=== PATIENT | male | born 1960 | race Two or more races ===

== ENCOUNTER 2019-06-06 06:55 | Emergency (ER) | payer MEDICARE ==
[~2019-06-06] VITALS: Ht 177.8 cm; Wt 90.7 kg
[2019-06-06 07:01] VITALS: BP 153/108
--- NOTE | 2019-06-06 07:14 | PHYS DOC ---
Past History Past Medical History: Kidney Stones Smoking: Quit Greater Than 1 Year (smoked for about a year) Adult General Chief Complaint Chief Complaint: SHORTNESS OF BREATH HPI HPI patient is a 58-year-old male, who presents to the emergency department for evaluation of 3-4 weeks worth of worsening cough, productive of greenish sputum, along with some low-grade fevers. He states he was unable to get off work, which is why it took so long to come. He does report some discomfort in his chest and back, primarily due to coughing. Laying flat seems to worsen his shortness of breath. He does report having had some nasal congestion. He denies any pedal edema, abdominal pain, leg or calf pain, or weight gain. He has not had any chest pain on exertion. He does have some shortness of breath with exertion. He states he has had similar symptoms in the past and been diagnosed with pneum onia. There are no alleviating or exacerbating factors to his symptoms, except as noted above. Review of Systems Review of Systems Constitutional: Denies fever or chills [] Eyes: Denies change in visual acuity, redness, or eye pain [] HENT: Denies sore throat. Reports left otalgia. [] Respiratory: No additional information not addressed in HPI [] Cardiovascular: The patient denies any palpitations, otherwise as specified in the history of present illness.[] GI: Denies abdominal pain, nausea, vomiting, bloody stools or diarrhea [] : Denies dysuria or hematuria [] Musculoskeletal: Denies back pain or joint pain [] Integument: Denies rash or skin lesions [] Neurologic: Denies headache, focal weakness or sensory changes [] Endocrine: Denies polyuria or polydipsia [] All other systems were reviewed and found to be within normal limits, except as documented in this note. Physical Exam Physical Exam PHYSICAL EXAM: CONSTITUTIONAL: Well developed, well nourished HEAD: normocephalic, atraumatic EENT: PERRL, EOMI. Conjunctivae normal color, sclerae non-icteric; moist mucous membranes. Tympanic membranes are normal bilaterally. NECK: Supple, non-tender; no meningismus. LUNGS: There are extra wheezes in all lung gomez, breathing even and unlabored. Normal air movement. HEART: Regular rate and rhythm, no murmur CHEST: No deformity; non-tender ABDOMEN: The abdomen is soft, and non-tender, no masses or bruits. EXTREM: Normal ROM; no deformity, no calf tenderness. Normal pulses palpable in all extremities. There is no pedal edema. SKIN: No rash; no diaphoresis NEURO: Alert; normal speech and cognition; CN's grossly intact; strength grossly intact without focal deficit. BACK: No CVA TTP. Current Patient Data Lab Results Laboratory Tests Test 06/06/19 07:21 White Blood Count 7.3 x10^3/uL Red Blood Count 4.74 x10^6/uL Hemoglobin 14.9 g/dL Hematocrit 42.9 % Mean Corpuscular Volume 91 fL Mean Corpuscular Hemoglobin 32 pg Mean Corpuscular Hemoglobin Concent 35 g/dL Red Cell Distribution Width 14.4 % Platelet Count 273 x10^3/uL Neutrophils (%) (Auto) 64 % Lymphocytes (%) (Auto) 26 % Monocytes (%) (Auto) 8 % Eosinophils (%) (Auto) 2 % Basophils (%) (Auto) 0 % Neutrophils # (Auto) 4.7 x10^3uL Lymphocytes # (Auto) 1.9 x10^3/uL Monocytes # (Auto) 0.5 x10^3/uL Eosinophils # (Auto) 0.1 x10^3/uL Basophils # (Auto) 0.0 x10^3/uL Sodium Level 142 mmol/L Potassium Level 3.6 mmol/L Chloride Level 108 mmol/L Carbon Dioxide Level 29 mmol/L Anion Gap 5 Blood Urea Nitrogen 13 mg/dL Creatinine 1.2 mg/dL Estimated GFR (Cockcroft-Gault) 62.6 BUN/Creatinine Ratio 11 Glucose Level 111 mg/dL Calcium Level 9.5 mg/dL Total Bilirubin 0.9 mg/dL Aspartate Amino Transf (AST/SGOT) 33 U/L Alanine Aminotransferase (ALT/SGPT) 39 U/L Alkaline Phosphatase 102 U/L Troponin I Quantitative 0.083 ng/mL BS-[id number]-M-[id number] Natriuretic Peptide 1384 pg/mL Total Protein 8.0 g/dL Albumin 3.9 g/dL Albumin/Globulin Ratio 1.0 Current Medications Medications (Trade) Dose Ordered Sig/Daniel Route PRN Reason Start Time Stop Time Status Last Admin Dose Admin Albuterol/ Ipratropium (Duoneb) 3 ml 1X ONCE NEB 06/06/19 07:40 06/06/19 07:41 DC 06/06/19 07:27 EKG EKG []Normal sinus rhythm at a rate of 72 beats for minute, leftward axis, normal intervals, there are no acute ischemic ST/T changes. Radiology/Procedures Radiology/Procedures [PROCEDURE: CHEST PA & LATERAL CHEST PA LATERAL CLINICAL INDICATION: Cough, shortness of breath. COMPARISON: None FINDINGS: Heart is normal in size. Lungs are clear. No pneumothorax or pleural effusion. Visualized bony thorax within normal limits. IMPRESSION: No acute pulmonary process. ] Course & Med Decision Making Course & Med Decision Making Pertinent Labs and Imaging studies reviewed. (See chart for details) []8:10 AM: The patient's condition remained stable. He is feeling somewhat bet ter, his wheezing is improved. He remained without respiratory distress. I discussed his abnormal labs, and recommended overnight cardiac evaluation. The patient declined, I discussed the risks of undiagnosed or untreated acute coronary syndrome including sudden and permanent debility, the patient voiced understanding. He does admit to using methamphetamine about 2 days ago, "to try and help his breathing". He states he does not usually abuse amphetamines. I discussed the suboptimal nature of the patient's treatment plan, with the importance of close outpatient follow-up given that he is not allowing inpatient cardiac evaluation. Return precautions were discussed in detail. Dragon Disclaimer Dragon Disclaimer This electronic medical record was generated, in whole or in part, using a voice recognition dictation system. Departure Departure: Impression: Primary Impression: Wheezing Additional Impressions: Elevated troponin Dyspnea Disposition: AGAINST MEDICAL ADVICE Condition: STABLE Referrals: REGINE CASTILLO MD Patient Instructions: Acute Bronchitis, Chest Pain (Nonspecific) Additional Instructions: Blood tests related to her heart or abnormal today. It is important that you get close follow-up with cardiology for further evaluation. Please call [phone], later today, to schedule an appointment to get seen as soon as possible. Begin taking 81 mg of aspirin once daily until instructed to stop by a physician.. Scripts Azithromycin (ZITHROMAX) 250 Mg Tablet 1 PKG PO UD for -, #6 TAB Prov: BRIANA EPPS MD 06/06/19 Prednisone (PREDNISONE) 20 Mg Tablet 40 MG PO DAILY for - for 5 Days, #10 TAB Prov: BRIANA EPPS MD 06/06/19 Albuterol Sulfate (PROAIR HFA INHALER) 8.5 Gm Hfa.aer.ad 1 PUFF INH PRN Q6HRS PRN for SHORTNESS OF BREATH, #1 INHALER 0 Refills Prov: BRIANA EPPS MD 06/06/19 Problem Qualifiers BRIANA EPPS MD Jun 06, 2019 07:14
[2019-06-06] MEDS: IPRATRPIUM/ALBUTEROL 0.5/2.5MG 3 ML NEBU. NEB ONE (07:27)
--- NOTE | 2019-06-06 07:51 | RAD ---
CHEST PA LATERAL CLINICAL INDICATION: Cough, shortness of breath. COMPARISON: None FINDINGS: Heart is normal in size. Lungs are clear. No pneumothorax or pleural effusion. Visualized bony thorax within normal limits. IMPRESSION: No acute pulmonary process. Electronically signed by: Mark De La Vega DO (06/06/2019 7:48 AM) [facility]
[2019-06-06 07:53] LABS: BASO % 0 % (0-3); EOS # 0.1 x10^3/uL (0.0-0.7); EOS % 2 % (0-3); HEMATOCRIT 42.9 % (39.0-53.0); HEMOGLOBIN 14.9 g/dL (13.0-17.5); LYMPH # 1.9 x10^3/uL (1.0-4.8); LYMPH % 26 % (24-48); MEAN CORPUSCULAR HEMOGLOBIN 32 pg (25-35); MEAN CORPUSCULAR HGB CONC 35 g/dL (31-37); MEAN CORPUSCULAR VOLUME 91 fL (79-100); MONO # 0.5 x10^3/uL (0.0-1.1); MONO % 8 % (0-9); NEUT # 4.7 x10^3uL (1.8-7.7); NEUT % 64 % (31-73); PLATELET COUNT 273 x10^3/uL (140-400); RED BLOOD COUNT 4.74 x10^6/uL (4.30-5.70); RED CELL DISTRIBUTION WIDTH 14.4 % (11.5-14.5); WHITE BLOOD COUNT 7.3 x10^3/uL (4.0-11.0)
[2019-06-06 07:58] LABS: ALBUMIN 3.9 g/dL (3.4-5.0); CALCIUM 9.5 mg/dL (8.5-10.1); CREATININE 1.2 mg/dL (0.7-1.3); GFR 62.6; POTASSIUM 3.6 mmol/L (3.5-5.1); TOTAL BILIRUBIN 0.9 mg/dL (0.2-1.0)
[2019-06-06] MEDS ORDERED: PRED20TA PO (08:14)
[2019-06-06] MEDS ORDERED: AZIT250T PO (08:14)
[2019-06-06] MEDS ORDERED: ALBU2.5V8 INH (08:14)
[2019-06-06] MEDS: ASPIRIN 81 MG TAB.CHEW PO ONE (08:25)
--- NOTE | 2019-06-06 18:28 | EKG ---
[address] [address] Test Date: 2019-06-06 Test Time: 07:26:31 Pat Name: LORETA LEYVA Department: Room: Gender: M [employer] Expediter: SYLVIA : 1960 Requested By: BRIANA EPPS Order Number: [id number] Reading MD: Chilo Brewster Measurements Intervals [place] Rate: 72 P: 31 [place]: 162 QRS: -36 QRSD: 104 T: 0 QT: 392 QTc: 431 Interpretive Statements SINUS RHYTHM ABNORMAL LEFT AXIS DEVIATION LEFT ANTERIOR FASCICULAR BLOCK Electronically Signed On 06-09-2019 10:05:37 CDT by Chilo Brewster
== END 2019-06-06 08:31 | disposition left against medical advice (07) ==
LOC: ER 06:55
DX: R06.00 Dyspnea, unspecified (principal); R77.8 Other specified abnormalities of plasma proteins; R06.2 Wheezing; H92.02 Otalgia, left ear; Z87.442 Personal history of urinary calculi; Z87.891 Personal history of nicotine dependence
CPT/HCPCS: 36415; 71046; 80053; 83880; 84484; 85025; 87040; 87205; 93005; 94640; 99285; J7620